=== PATIENT | male | born 1945 | race African-American/Black ===

== ENCOUNTER 2021-06-01 11:34 | Emergency (ER) | payer MEDICARE, OTHER ==
[2021-06-01] MEDS ORDERED: Ipratropium Bromide 2.5 ml Neb ONE ×2 (12:25→13:59)
[2021-06-01] MEDS ORDERED: Albuterol Sulfate 2.5 mg/3 ml Neb ONE ×2 (12:25→13:58)
[2021-06-01] MEDS ORDERED: methylPREDNISolone Sod Succ/PF 125 MG/2 ML VIAL ONE (12:26)
[2021-06-01 12:44] LABS: #Eosinphils 0.1 10x3/uL (0.0-0.5); #Monocytes 0.7 10x3/uL (0.0-1.1); #Neutrophils 4.7 10x3/uL (1.5-8.4); %Basophils 0.6 % (0.0-2.0); %Eosinophils 1.7 % (0.0-6.0); %Lymphocytes 15.5 % (18.0-47.0); %Monocytes 10.4 % (0.0-10.0); %Neutrophils 71.5 % (40.0-75.0); Hemoglobin 13.1 g/dL (13.5-17.5); Mean Corpuscular HGB CONC 32.3 g/dL (32.0-36.0); Mean Corpuscular Hemoglobin 30.8 pg (27.0-33.0); Mean Corpuscular Volume 95.5 fl (81.2-95.1); Mean Platelet Volume 11.5 fl (7.4-10.4); Platelet Count 219 10x3/uL (150-450); Red Blood Cell (RBC) Count 4.25 10x6/uL (4.32-5.72); White Blood Cell (WBC) Count 6.5 10x3/uL (3.5-10.5)
[2021-06-01 13:15] LABS: ALT (SGPT) 20 U/L (8-55); AST (SGOT) 20 U/L (5-34); Albumin 4.1 g/dL (3.4-4.8); Alkaline Phosphatase 59 U/L (40-110); Anion Gap 14 mmol/L (10-20); BUN (Urea Nitrogen) 15 mg/dL (8.4-25.7); Bilirubin, Total 1.1 mg/dL (0.2-1.2); Calc. Creatinine Clearance 0 mL/min (70-130); Calcium 9.3 mg/dL (7.8-10.44); Carbon Dioxide 28 mmol/L (23-31); Chloride 106 mmol/L (98-107); Globulin 2.5 g/dL (2.4-3.5); Glucose 114 mg/dL (83-110); Potassium 4.1 mmol/L (3.5-5.1); Protein, Total 6.6 g/dL (5.8-8.1); Sodium 144 mmol/L (136-145)
[2021-06-01 13:35] LABS: SARS-CoV-2 NAA Rapid Test Not Detected (NotDetected)
== END 2021-06-01 20:00 | disposition home or self-care (01) ==
LOC: CSHERS 11:34
DX: J44.1 Chronic obstructive pulmonary disease with (acute) exacerbation (principal); I13.0 Hypertensive heart and chronic kidney disease with heart failure and stage 1 through stage 4 chronic kidney disease, or unspecified chronic kidney disease; I50.9 Heart failure, unspecified; N18.9 Chronic kidney disease, unspecified; G93.41 Metabolic encephalopathy; F03.90 Unspecified dementia, unspecified severity, without behavioral disturbance, psychotic disturbance, mood disturbance, and anxiety; N40.0 Benign prostatic hyperplasia without lower urinary tract symptoms; Z87.891 Personal history of nicotine dependence; Z79.899 Other long term (current) drug therapy; Z20.822 Contact with and (suspected) exposure to COVID-19
CPT/HCPCS: 71045; 80053; 84484; 85025; 93005; U0002; 96374; J2930; J7611

== ENCOUNTER 2021-06-24 08:38 | Emergency (ER) | payer MEDICARE, OTHER ==
[2021-06-24] MEDS ORDERED: methylPREDNISolone Sod Succ/PF 125 MG/2 ML VIAL ONE (09:24)
[2021-06-24 09:33] LABS: #Basophils 0.1 10x3/uL (0.0-0.2); #Eosinphils 0.3 10x3/uL (0.0-0.5); #Monocytes 0.5 10x3/uL (0.0-1.1); #Neutrophils 3.7 10x3/uL (1.5-8.4); %Basophils 0.9 % (0.0-2.0); %Eosinophils 5.3 % (0.0-6.0); %Lymphocytes 16.5 % (18.0-47.0); %Monocytes 8.8 % (0.0-10.0); %Neutrophils 68.1 % (40.0-75.0); Hemoglobin 10.9 g/dL (13.5-17.5); Mean Corpuscular HGB CONC 32.2 g/dL (32.0-36.0); Mean Corpuscular Hemoglobin 31.1 pg (27.0-33.0); Mean Corpuscular Volume 96.6 fl (81.2-95.1); Mean Platelet Volume 10.9 fl (7.4-10.4); Platelet Count 207 10x3/uL (150-450); RBC Distribution Width 11.4 % (11.5-14.5); White Blood Cell (WBC) Count 5.4 10x3/uL (3.5-10.5)
[2021-06-24 09:45] LABS: ALT (SGPT) 24 U/L (8-55); AST (SGOT) 26 U/L (5-34); Albumin 3.9 g/dL (3.4-4.8); Alkaline Phosphatase 54 U/L (40-110); Anion Gap 12 mmol/L (10-20); BUN (Urea Nitrogen) 19 mg/dL (8.4-25.7); Bilirubin, Total 0.8 mg/dL (0.2-1.2); Calc. Creatinine Clearance 0 mL/min (70-130); Calcium 8.7 mg/dL (7.8-10.44); Carbon Dioxide 26 mmol/L (23-31); Chloride 107 mmol/L (98-107); Globulin 2.3 g/dL (2.4-3.5); Glucose 99 mg/dL (83-110); Potassium 3.9 mmol/L (3.5-5.1); Protein, Total 6.2 g/dL (5.8-8.1); Sodium 141 mmol/L (136-145)
== END 2021-06-24 15:01 ==
LOC: CSHERS 08:38
DX: J43.9 Emphysema, unspecified (principal); R41.82 Altered mental status, unspecified; R01.1 Cardiac murmur, unspecified; I13.0 Hypertensive heart and chronic kidney disease with heart failure and stage 1 through stage 4 chronic kidney disease, or unspecified chronic kidney disease; I50.9 Heart failure, unspecified; N18.9 Chronic kidney disease, unspecified; N40.0 Benign prostatic hyperplasia without lower urinary tract symptoms; Z87.891 Personal history of nicotine dependence
CPT/HCPCS: 70450; 71045; 80053; 83880; 84484; 85025; 93005; 94640; 94760; 96374; J2930; J7620

== ENCOUNTER 2021-08-01 18:33 | Inpatient (IN) | payer MEDICARE, OTHER ==
[2021-08-01 19:54] LABS: #Eosinphils 0.6 10x3/uL (0.0-0.5); #Monocytes 0.8 10x3/uL (0.0-1.1); #Neutrophils 3.7 10x3/uL (1.5-8.4); %Basophils 0.6 % (0.0-2.0); %Eosinophils 9.1 % (0.0-6.0); %Lymphocytes 25.1 % (18.0-47.0); %Monocytes 11.4 % (0.0-10.0); %Neutrophils 53.7 % (40.0-75.0); Hemoglobin 11.3 g/dL (13.5-17.5); Mean Corpuscular HGB CONC 33.1 g/dL (32.0-36.0); Mean Corpuscular Hemoglobin 31.1 pg (27.0-33.0); Mean Corpuscular Volume 93.9 fl (81.2-95.1); Mean Platelet Volume 10.9 fl (7.4-10.4); Platelet Count 213 10x3/uL (150-450); RBC Distribution Width 11.3 % (11.5-14.5); Red Blood Cell (RBC) Count 3.63 10x6/uL (4.32-5.72); White Blood Cell (WBC) Count 6.9 10x3/uL (3.5-10.5)
[2021-08-01 20:04] LABS: ALT (SGPT) 14 U/L (8-55); AST (SGOT) 20 U/L (5-34); Albumin 3.7 g/dL (3.4-4.8); Alkaline Phosphatase 62 U/L (40-110); Anion Gap 11 mmol/L (10-20); BUN (Urea Nitrogen) 29 mg/dL (8.4-25.7); Bilirubin, Total 0.4 mg/dL (0.2-1.2); Calc. Creatinine Clearance 0 mL/min (70-130); Carbon Dioxide 29 mmol/L (23-31); Chloride 106 mmol/L (98-107); Globulin 2.6 g/dL (2.4-3.5); Glucose 108 mg/dL (83-110); Magnesium 2.2 mg/dL (1.6-2.6); Potassium 4.1 mmol/L (3.5-5.1); Protein, Total 6.3 g/dL (5.8-8.1); Sodium 142 mmol/L (136-145)
[2021-08-01 20:42] LABS: SARS-CoV-2 NAA Rapid Test Not Detected (NotDetected)
[2021-08-02] MEDS ORDERED: Furosemide 40 MG/4 ML VIAL ONE (00:04)
[2021-08-02] MEDS ORDERED: methylPREDNISolone Sod Succ/PF 125 MG/2 ML VIAL ONE (00:04)
[2021-08-02 00:56] LABS: Bilirubin Neg (Negative); Blood, Urine 10 (Negative); Clarity Slightly Cloudy (Clear); Glucose, Urine (Dipstick) Normal (Negative); Ketone, Urine Negative (Negative); Leukocyte 500 (Negative); Nitrite Negative (Negative); Protein, Urine (Dipstick) 15 mg/dl (Neg-Trace); Urobilinogen Normal mg/dL (Less than 2)
[2021-08-02 01:06] LABS: Bacteria/HPF 4+ HPF (None Seen); Mucous/LPF None Seen LPF (<2+); RBC/HPF 0-3 HPF (0-3); Squamous Epithelial None Seen HPF (0-3); WBC/HPF Greater Than 50 HPF (0-3)
[2021-08-02] MEDS ORDERED: Zolpidem Tartrate 5 MG TAB PO PRN (01:41)
[2021-08-02] MEDS ORDERED: Calcium Carbonate 500 MG ChewTAB PO PRN (01:41)
[2021-08-02] MEDS ORDERED: Senokot S 8.6-50 MG TAB PO PRN (01:41)
[2021-08-02] MEDS ORDERED: Acetaminophen 325 MG TAB PO PRN (01:41)
[2021-08-02] MEDS ORDERED: Ondansetron PF 4 MG/2 ML Vial IVP PRN (01:41)
[2021-08-02] MEDS ORDERED: Guaifenesin DM 100-10/5 ML UDCUP PO PRN (01:41)
[2021-08-02] MEDS ORDERED: cefTRIAXone\\ROCEPHIN 1 GM VIAL ONE ×2 (01:43→07:58)
[2021-08-02] MEDS ORDERED: Prazosin HCl 1 MG CAP PO PRN (01:43)
[2021-08-02] MEDS: Mometasone 200 MCG/Formoterol 5 MCG 120 PUFF INHALER INH SCH ×2 (06:47→20:19)
[2021-08-02] MEDS ORDERED: Lorazepam 2 MG/ML VIAL ONE ×2 (07:02→15:28)
[2021-08-02 07:44] LABS: Anion Gap 14 mmol/L (10-20); BUN (Urea Nitrogen) 28 mg/dL (8.4-25.7); Calc. Creatinine Clearance 0 mL/min (70-130); Calcium 9.2 mg/dL (7.8-10.44); Carbon Dioxide 26 mmol/L (23-31); Chloride 107 mmol/L (98-107); Glucose 176 mg/dL (83-110); Potassium 3.9 mmol/L (3.5-5.1); Sodium 143 mmol/L (136-145)
[2021-08-02] MEDS ORDERED: Enoxaparin Sodium 40 MG/0.4 ML SYRINGE ONE (07:57)
[2021-08-02] MEDS ORDERED: Metoprolol Tartrate 25 MG TAB ONE (07:57)
[2021-08-02] MEDS ORDERED: predniSONE 20 MG TAB ONE (07:57)
[2021-08-02] MEDS ORDERED: Famotidine/PF 20 mg/2ml Vial ONE (07:58)
[2021-08-02] MEDS ORDERED: Tamsulosin HCl 0.4 MG CAP ONE (08:11)
[2021-08-02] MEDS ORDERED: Cholecalciferol 1,000 UNITS (25 MCG) TAB ONE (08:12)
[2021-08-02] MEDS: cefTRIAXone\\ROCEPHIN 1 GM in Sodium Chloride 0.9% 100 ML IVPB SCH (08:30)
[2021-08-02] MEDS ORDERED: ROFLUMILAST 250 MCG PO SCH (09:00)
[2021-08-02] MEDS ORDERED: Famotidine 20 MG TAB PO SCH (09:00)
[2021-08-02] MEDS: predniSONE 20 MG TAB PO SCH (10:35)
[2021-08-02] MEDS: Enoxaparin Sodium 40 MG/0.4 ML SYRINGE SC SCH (10:35)
[2021-08-02] MEDS: buPROPion 75 MG TAB PO SCH (10:35)
[2021-08-02] MEDS: Cholecalciferol 1,000 UNITS (25 MCG) TAB PO SCH (10:35)
[2021-08-02] MEDS: Escitalopram Oxalate 20 mg Tablet PO SCH (10:36)
[2021-08-02] MEDS: guaiFENesin ER 600 MG TAB PO SCH ×2 (10:36→21:16)
[2021-08-02] MEDS: Tamsulosin HCl 0.4 MG CAP PO SCH (10:38)
[2021-08-02] MEDS: Metoprolol Tartrate 50 MG TAB PO SCH (10:38)
[2021-08-02] MEDS ORDERED: Zolpidem Tartrate 5 MG TAB ONE (15:27)
[2021-08-02] MEDS: Donepezil HCl 5 MG TAB PO SCH (21:16)
[2021-08-02] MEDS: Atorvastatin Calcium 20 MG TAB PO SCH (21:16)
[2021-08-03] MEDS ORDERED: Haloperidol Lactate 5 MG/ML VIAL IM SCH (02:45)
[2021-08-03 05:22] VITALS: BMI 21.7
[2021-08-03] MEDS: Mometasone 200 MCG/Formoterol 5 MCG 120 PUFF INHALER INH SCH ×2 (07:00→19:45)
[2021-08-03] MEDS ORDERED: Haloperidol Lactate 5 MG/ML VIAL SLOW IVP SCH (08:00)
[2021-08-03] MEDS: cefTRIAXone\\ROCEPHIN 1 GM in Sodium Chloride 0.9% 100 ML IVPB SCH (08:35)
[2021-08-03] MEDS: Enoxaparin Sodium 40 MG/0.4 ML SYRINGE SC SCH (08:41)
[2021-08-03] MEDS: Escitalopram Oxalate 20 mg Tablet PO SCH (08:49)
[2021-08-03] MEDS: Metoprolol Tartrate 50 MG TAB PO SCH (08:49)
[2021-08-03] MEDS: guaiFENesin ER 600 MG TAB PO SCH ×2 (08:49→21:36)
[2021-08-03] MEDS: buPROPion 75 MG TAB PO SCH (08:49)
[2021-08-03] MEDS: Tamsulosin HCl 0.4 MG CAP PO SCH (08:49)
[2021-08-03] MEDS: Famotidine 20 MG TAB PO SCH (08:49)
[2021-08-03] MEDS: Cholecalciferol 1,000 UNITS (25 MCG) TAB PO SCH (08:49)
[2021-08-03] MEDS ORDERED: predniSONE 20 MG TAB PO SCH (09:15)
[2021-08-03] MEDS: predniSONE 20 MG TAB PO SCH (09:20)
[2021-08-03] MEDS ORDERED: hydrALAZINE 20 MG/ML VIAL SLOW IVP PRN (11:34)
[2021-08-03] MEDS: Sodium Chloride 0.9% 1,000 ML IV SCH (12:16)
[2021-08-03] MEDS: Atorvastatin Calcium 20 MG TAB PO SCH (21:36)
[2021-08-03] MEDS: Donepezil HCl 5 MG TAB PO SCH (21:47)
[2021-08-04] MEDS: Sodium Chloride 0.9% 1,000 ML IV SCH ×2 (02:09→13:40)
[2021-08-04 06:45] LABS: #Monocytes 0.8 10x3/uL (0.0-1.1); #Neutrophils 7.6 10x3/uL (1.5-8.4); %Basophils 0.1 % (0.0-2.0); %Eosinophils 0.1 % (0.0-6.0); %Lymphocytes 15.8 % (18.0-47.0); %Monocytes 8.3 % (0.0-10.0); %Neutrophils 75.2 % (40.0-75.0); Hemoglobin 11.1 g/dL (13.5-17.5); Mean Corpuscular HGB CONC 32.6 g/dL (32.0-36.0); Mean Corpuscular Hemoglobin 30.7 pg (27.0-33.0); Mean Corpuscular Volume 93.9 fl (81.2-95.1); Mean Platelet Volume 11.4 fl (7.4-10.4); Platelet Count 186 10x3/uL (150-450); RBC Distribution Width 11.1 % (11.5-14.5); Red Blood Cell (RBC) Count 3.62 10x6/uL (4.32-5.72); White Blood Cell (WBC) Count 10.1 10x3/uL (3.5-10.5)
[2021-08-04 06:53] LABS: Anion Gap 13 mmol/L (10-20); BUN (Urea Nitrogen) 22 mg/dL (8.4-25.7); Calc. Creatinine Clearance 52 mL/min (70-130); Calcium 8.4 mg/dL (7.8-10.44); Carbon Dioxide 25 mmol/L (23-31); Chloride 108 mmol/L (98-107); Glucose 94 mg/dL (83-110); Potassium 3.6 mmol/L (3.5-5.1); Sodium 142 mmol/L (136-145)
[2021-08-04] MEDS: Mometasone 200 MCG/Formoterol 5 MCG 120 PUFF INHALER INH SCH ×2 (07:00→18:05)
[2021-08-04] MEDS ORDERED: FLU VACC QS2021-22(65YR UP)/PF 240 MCG/0.7 ML SYRINGE IM ONE (09:00)
[2021-08-04] MEDS: cefTRIAXone\\ROCEPHIN 1 GM in Sodium Chloride 0.9% 100 ML IVPB SCH (10:01)
[2021-08-04] MEDS: Amlodipine 10 MG TAB PO SCH (10:02)
[2021-08-04] MEDS: Famotidine 20 MG TAB PO SCH (10:02)
[2021-08-04] MEDS: Lorazepam 2 MG/ML VIAL SLOW IVP PRN ×2 (10:02→14:45)
[2021-08-04] MEDS: Metoprolol Tartrate 50 MG TAB PO SCH (10:02)
[2021-08-04] MEDS: Enoxaparin Sodium 40 MG/0.4 ML SYRINGE SC SCH (10:02)
[2021-08-04] MEDS: Gabapentin 400 MG CAP PO PRN (10:02)
[2021-08-04] MEDS: Furosemide 40 MG TAB PO PRN (10:03)
[2021-08-04] MEDS: buPROPion 75 MG TAB PO SCH (10:03)
[2021-08-04] MEDS: Escitalopram Oxalate 20 mg Tablet PO SCH (10:03)
[2021-08-04] MEDS: Cholecalciferol 1,000 UNITS (25 MCG) TAB PO SCH (10:03)
[2021-08-04] MEDS: predniSONE 20 MG TAB PO SCH (10:03)
[2021-08-04] MEDS: Tamsulosin HCl 0.4 MG CAP PO SCH (10:03)
[2021-08-04] MEDS: guaiFENesin ER 600 MG TAB PO SCH ×3 (10:04→22:36)
[2021-08-04] MEDS: Donepezil HCl 5 MG TAB PO SCH ×2 (21:20→22:36)
[2021-08-04] MEDS: Atorvastatin Calcium 20 MG TAB PO SCH ×2 (21:21→22:35)
[2021-08-04] MEDS: Lorazepam 0.5 MG TAB PO SCH ×2 (21:21→22:36)
[2021-08-05 05:10] LABS: Anion Gap 11 mmol/L (10-20); BUN (Urea Nitrogen) 19 mg/dL (8.4-25.7); Calc. Creatinine Clearance 55 mL/min (70-130); Calcium 8.3 mg/dL (7.8-10.44); Carbon Dioxide 27 mmol/L (23-31); Chloride 106 mmol/L (98-107); Glucose 92 mg/dL (83-110); Potassium 3.5 mmol/L (3.5-5.1); Sodium 140 mmol/L (136-145)
[2021-08-05 05:34] LABS: #Monocytes 0.9 10x3/uL (0.0-1.1); #Neutrophils 7.9 10x3/uL (1.5-8.4); %Basophils 0.1 % (0.0-2.0); %Eosinophils 0.1 % (0.0-6.0); %Lymphocytes 12.9 % (18.0-47.0); %Monocytes 8.8 % (0.0-10.0); %Neutrophils 77.5 % (40.0-75.0); Hemoglobin 11.4 g/dL (13.5-17.5); Mean Corpuscular HGB CONC 32.8 g/dL (32.0-36.0); Mean Corpuscular Hemoglobin 30.4 pg (27.0-33.0); Mean Corpuscular Volume 92.8 fl (81.2-95.1); Mean Platelet Volume 11.5 fl (7.4-10.4); Platelet Count 199 10x3/uL (150-450); RBC Distribution Width 10.9 % (11.5-14.5); Red Blood Cell (RBC) Count 3.75 10x6/uL (4.32-5.72); White Blood Cell (WBC) Count 10.2 10x3/uL (3.5-10.5)
[2021-08-05] MEDS: Mometasone 200 MCG/Formoterol 5 MCG 120 PUFF INHALER INH SCH (07:15)
[2021-08-05] MEDS: Sodium Chloride 0.9% 1,000 ML IV SCH ×2 (07:43→17:46)
[2021-08-05] MEDS: Enoxaparin Sodium 40 MG/0.4 ML SYRINGE SC SCH (08:55)
[2021-08-05] MEDS: Gabapentin 400 MG CAP PO PRN (08:56)
[2021-08-05] MEDS: Tamsulosin HCl 0.4 MG CAP PO SCH (08:57)
[2021-08-05] MEDS: Metoprolol Tartrate 50 MG TAB PO SCH (08:57)
[2021-08-05] MEDS: cefTRIAXone\\ROCEPHIN 1 GM in Sodium Chloride 0.9% 100 ML IVPB SCH (08:57)
[2021-08-05] MEDS: buPROPion 75 MG TAB PO SCH (08:57)
[2021-08-05] MEDS: predniSONE 20 MG TAB PO SCH (08:57)
[2021-08-05] MEDS: Furosemide 40 MG TAB PO PRN (08:57)
[2021-08-05] MEDS: Lorazepam 0.5 MG TAB PO SCH ×2 (08:57→15:08)
[2021-08-05] MEDS: Cholecalciferol 1,000 UNITS (25 MCG) TAB PO SCH (08:57)
[2021-08-05] MEDS: Escitalopram Oxalate 20 mg Tablet PO SCH (08:57)
[2021-08-05] MEDS: Amlodipine 10 MG TAB PO SCH (08:57)
[2021-08-05] MEDS: Famotidine 20 MG TAB PO SCH (08:57)
[2021-08-05] MEDS: guaiFENesin ER 600 MG TAB PO SCH (08:58)
[2021-08-05 15:59] VITALS: BP 125/59; TEMP 99.1
== END 2021-08-05 19:14 | DRG 682 ==
LOC: CSHERS 18:33 → CSHERHOLD 18:34 → CSHTELE 08-02 18:38
PROVIDERS: ADMIT Student in an Organized Health Care Education/Training Program; ATTEND Internal Medicine
DX: N17.9 Acute kidney failure, unspecified (principal); G93.41 Metabolic encephalopathy; N39.0 Urinary tract infection, site not specified; J44.1 Chronic obstructive pulmonary disease with (acute) exacerbation; F03.91 Unspecified dementia, unspecified severity, with behavioral disturbance; Z20.822 Contact with and (suspected) exposure to COVID-19; I12.9 Hypertensive chronic kidney disease with stage 1 through stage 4 chronic kidney disease, or unspecified chronic kidney disease; R33.8 Other retention of urine; F43.10 Post-traumatic stress disorder, unspecified; G47.30 Sleep apnea, unspecified; N18.31 Chronic kidney disease, stage 3a; N40.1 Benign prostatic hyperplasia with lower urinary tract symptoms; E78.5 Hyperlipidemia, unspecified; Z79.51 Long term (current) use of inhaled steroids; Z88.8 Allergy status to other drugs, medicaments and biological substances; Z79.899 Other long term (current) drug therapy; Z87.891 Personal history of nicotine dependence; Z78.1 Physical restraint status
CPT/HCPCS: 36415; 51702; 70450; 71045; 80048; 80053; 81003; 81015; 83605; 83735; 83880; 84484; 85025; 87040; 87077; 87086; 87186; 93005; 93010; 93306; 93970; 94640; 94664; 96365; 96375; J0360; J0696; J1630; J1650; J1940; J2060; J2930; J3490; J7050; J7512; J7620; S0028; U0002